=== PATIENT | female | born 1990 | race Caucasian/White ===

== ENCOUNTER → 2016-11-24 | Outpatient (CLI) | payer OTHER | END | disposition home or self-care (01) | LOC: LABWHC1 11:12 | PROVIDERS: ATTEND Obstetrics & Gynecology | DX: N92.5 Other specified irregular menstruation (principal) | CPT/HCPCS: 36415; 84702 ==

== ENCOUNTER → 2016-11-26 | Outpatient (CLI) | payer OTHER | END | disposition home or self-care (01) | LOC: LABWHC1 10:32 | PROVIDERS: ATTEND Obstetrics & Gynecology | DX: N92.5 Other specified irregular menstruation (principal) | CPT/HCPCS: 36415; 84702 ==

== ENCOUNTER → 2016-12-12 | Outpatient (CLI) | payer OTHER ==
--- NOTE | 2016-12-12 16:16 | US ---
EXAMINATION TYPE: US OB <= 14 wk fetus DATE OF EXAM: 12/12/2016 12:48 PM COMPARISON: NONE CLINICAL HISTORY: 26-year-old female assess O36.70X0 Viability in . Date of LMP: not known, miscarriage in Sep EXAM PERFORMED: Transabdominal (TA) FINDINGS: EXAM MEASUREMENTS: GESTATIONAL AGE / DATING Physician Established: not yet established Dates by LMP: unknown Dates by First Scan: 1st scan today Dates by Current Scan for: 6 weeks/5 days) EDC: 08/02/17 MATERNAL ANATOMY Uterus: 8.9 x 4.6 x 6.8cm Right Ovary: 2.9 x 1.5 x 1.5cm Left Ovary: 2.9 x 2.5 x 2.3cm Post CDS / Adnexa: wnl Presence of free fluid: no GESTATION / SURVEY CRL: 0.8 mm (6 weeks/5 days) Yolk Sac (normal less than 6mm): 1.8 mm Heart Rate: 142 bpm Rhythm: normal IUP: yes RESEARCH PROFESSOR NOTES: Normal IUP. IMPRESSION: 1. Single live intrauterine with gestational age of 6 weeks 5 days by crown-rump length. 2. Complete survey recommended at 18-20 weeks.
== END | disposition home or self-care (01) ==
LOC: RADUSWWP 12:15
PROVIDERS: ATTEND Obstetrics & Gynecology
DX: O36.71X0 Maternal care for viable fetus in abdominal pregnancy, first trimester, not applicable or unspecified (principal); Z3A.01 Less than 8 weeks gestation of pregnancy
CPT/HCPCS: 76801

== ENCOUNTER 2017-01-02 21:13 | Emergency (ER) | payer OTHER ==
[2017-01-02 22:12] VITALS: RESP 18
[2017-01-03] LABS: Appearance,Urine Clear (Clear); Bilirubin,Urine Negative (Negative); Glucose,Urine (UA) Negative (Negative); Ketones,Urine Negative (Negative); Leukocyte Esterase,Urine Trace (Negative); Nitrite,Urine Negative (Negative); PH, Urine 7.5 (5.0-8.0); Particle Count 2237; Protein,Urine Negative (Negative); RBC,Urine <1 /hpf (0-5); Specific Gravity,Urine 1.004 (1.001-1.035); Squamous Epithelial Cell,Urine 1 /hpf (0-4); UA Billing (MACRO vs. MICRO) MICRO; Urobilinogen,Urine <2.0 mg/dL (<2.0); WBC,Urine 3 /hpf (0-5)
--- NOTE | 2017-01-03 00:51 | US ---
EXAM: US First Trimester, Transabdominal CLINICAL HISTORY: Reason: pain TECHNIQUE: Real-time transabdominal obstetrical ultrasound of the maternal pelvis and a first trimester with image documentation. COMPARISON: US dated 12/12/16. FINDINGS: Gestation: Single intrauterine . CRL: 3.37 (10 weeks/2 days) Yolk Sac: 3 mm Heart Rate: 163 bpm Placenta/amniotic fluid: Cannot be adequately evaluated due to the early gestational age. Uterus/cervix: Uterus: 10.0 x 7.2 x 10.4 No myometrial mass. Ovaries: Right Ovary: 4.0 x 1.5 x 2.0 Left Ovary: 4.0 x 2.2 x 1.9 No mass. Free fluid: No free fluid. IMPRESSION: Single live IUP of 10 weeks and 2 days. Findings consistent with dates and prior study.
--- NOTE | 2017-01-03 01:10 | ED ---
Female Urogenital HPI - General Chief complaint: Vaginal Bleeding Stated complaint: abd cramping Time Seen by Provider: 01/02/17 23:34 Source: patient Mode of arrival: ambulatory Limitations: no limitations - History of Present Illness Initial comments: This is a 26 year old female approximately 10 weeks with one episode of bleeding from when she wiped after urinating. Denies clots.REports previous miscarriage. Denies any abdominal pain, nausea, vomiting, dysuria, hematuria. Denies any back pain, does have mild cramping. States that follows with local [facility]. Denies any fever or chills. States that she believes the bleeding stopped after she wiped the one time. - Related Data Home Medications Medication Instructions Recorded Confirmed [id number] Acid 1 cap PO DAILY 01/02/17 01/02/17 [-U Capsule (formulary)] Allergies Allergy/AdvReac Type Severity Reaction Status Date / Time No Known Allergies Allergy Verified 01/02/17 23:15 Review of Systems ROS Statement: Those systems with pertinent positive or pertinent negative responses have been documented in the HPI. ROS Other: All systems not noted in ROS Statement are negative. Past Medical History Past Medical History: No Reported History History of Any Multi-Drug Resistant Organisms: None Reported Past Surgical History: Tonsillectomy Past Psychological History: No Psychological Hx Reported Smoking Status: Current every day smoker Past Alcohol Use History: None Reported Past Drug Use History: None Reported General Exam - General Exam Comments Initial Comments: Well appearing 26 year old female, no distress. Limitations: no limitations General appearance: alert, in no apparent distress Head exam: Present: atraumatic, normocephalic, normal inspection Eye exam: Present: normal appearance, PERRL, EOMI. Absent: scleral icterus, conjunctival injection, periorbital swelling ENT exam: Present: normal exam, mucous membranes moist Neck exam: Present: normal inspection. Absent: tenderness, meningismus, lymphadenopathy Respiratory exam: Present: normal lung sounds bilaterally. Absent: respiratory distress, wheezes, rales, rhonchi, stridor Cardiovascular Exam: Present: regular rate, normal rhythm, normal heart sounds. Absent: systolic murmur, diastolic murmur, rubs, gallop, clicks GI/Abdominal exam: Present: soft, normal bowel sounds. Absent: distended, tenderness, guarding, rebound, rigid External exam: Present: normal external exam Speculum exam: Present: normal speculum exam. Absent: vaginal discharge, cervical discharge, vaginal bleeding Extremities exam: Present: normal inspection, full ROM, normal capillary refill. Absent: tenderness, pedal edema, joint swelling, calf tenderness Back exam: Present: normal inspection Neurological exam: Present: alert, oriented X3, CN II-XII intact Psychiatric exam: Present: normal affect, normal mood Skin exam: Present: warm, dry, intact, normal color. Absent: rash Course Vital Signs 01/02/17 01/03/17 01/03/17 22:08 00:31 01:30 Temperature 97.3 F L 97 F L Pulse Rate 80 67 76 Respiratory 18 18 18 Rate Blood Pressure 127/60 117/76 122/72 O2 Sat by Pulse 100 100 98 Oximetry Medical Decision Making - Medical Decision Making This is a 26 year old female approximately 10 weeks with one episode of bleeding from when she wiped after urinating. Denies clots.REports previous miscarriage. Denies any abdominal pain, nausea, vomiting, dysuria, hematuria. Denies any back pain, or cramping. States that follows with local [facility]. Denies any fever or chills. States that she believes the bleeding stopped after she wiped the one time. Lab work and US obtained. Patient is positive. US shows single IUP measuring 10 weeks, 2 days. Speculum exam was negative for clotting or blood. Patient cervix appears closed. Patient will be discharged with close follow up with OB and advised torest. Patient given outpaint lab draw for repeat hcg. - Lab Data Lab Results 01/02/17 01/02/17 01/02/17 Range/Units 23:47 23:52 23:52 HCG, Quant 660436.0 mIU/mL Urine Color Light Yellow Urine Appearance Clear (Clear) Urine pH 7.5 (5.0-8.0) Ur Specific [place] 1.004 (1.001-1.035) Urine Protein Negative (Negative) Urine Glucose (UA) Negative (Negative) Urine Ketones Negative (Negative) Urine Blood Negative (Negative) Urine Nitrite Negative (Negative) Urine Bilirubin Negative (Negative) Urine Urobilinogen <2.0 (<2.0) mg/dL Ur Leukocyte Esterase Trace H (Negative) Urine RBC <1 (0-5) /hpf Urine WBC 3 (0-5) /hpf Ur Squamous Epith Cells 1 (0-4) /hpf Blood Type O Positive Blood Type Recheck No - Radiology Data Radiology results: report reviewed Single IUP measuring 10 weeks and 2 days. Disposition Clinical Impression: Threatened miscarriage Disposition: HOME SELF-CARE Condition: Good Instructions: Threatened Miscarriage (ED) Additional Instructions: repeat blood work and 48 hours. Follow-up with [facility]. Return to the emergency department any alarming signs or symptoms occur. Referrals: Sanna Birmingham MD [Primary Care Provider] - 1-2 days Time of Disposition: 01:09
[2017-01-03 01:41] VITALS: BP 122/72; PULSE 76; TEMP 97
== END 2017-01-03 01:48 | disposition home or self-care (01) ==
LOC: EC 21:13
DX: O20.0 Threatened abortion (principal); Z3A.00 Weeks of gestation of pregnancy not specified; F17.200 Nicotine dependence, unspecified, uncomplicated; Z79.899 Other long term (current) drug therapy
CPT/HCPCS: 36415; 76801; 81001; 84702; 86900; 86901; 99284

== ENCOUNTER → 2017-01-04 | Outpatient (CLI) | payer OTHER | END | disposition home or self-care (01) | LOC: LABWHC1 12:02 | PROVIDERS: ATTEND Physician Assistant Medical | DX: Q20.0 Common arterial trunk (principal) | CPT/HCPCS: 36415; 84702 ==